=== PATIENT | male | born 2000 | race Hispanic/Latino ===

== ENCOUNTER 2021-06-10 13:32 | Emergency (ER) | payer OTHER ==
[2021-06-10] MEDS ORDERED: CLINDAMYCIN 600MG/D5W 600 MG/50 ML BAG IV ONE (14:49)
--- NOTE | 2021-06-10 16:23 | ER ---
Nurse's Notes [facility] Name: Srini Marlow Jr Age: 20 yrs Sex: Male : 2000 Arrival Date: 06/10/2021 Time: 13:35 Bed Treatment Private MD: Diagnosis: Dental Abscess Presentation: 06/10 13:42 Chief complaint: Patient states: pt presented to ed reporting left sided lower mouth [place] abcess. Coronavirus screen: Vaccine status: Patient reports being unvaccinated. Ebola Screen: Patient denies travel to an Ebola-affected area in the 21 days before illness onset. Initial Sepsis Screen: Does the patient meet any 2 criteria? HR > 90 bpm. Yes. Initial Sepsis Screen: Does the patient meet any 2 criteria? No. Patient's initial sepsis screen is negative. Does the patient have a suspected source of infection? No. Patient's initial sepsis screen is negative. Risk Assessment: Do you want to hurt yourself or someone else? Patient reports no desire to harm self or others. Onset of symptoms was June 09, 2021. 13:42 Method Of Arrival: Ambulatory [place] 13:42 Acuity: CLAIRE 4 [place] Historical: - Allergies: 14:08 No Known Allergies; ld1 - Home Meds: 14:08 None [Active]; ld1 - PMHx: 14:08 None; ld1 - PSHx: 14:08 None; ld1 - Immunization history:: Adult Immunizations up to date, Client reports receiving the 2nd dose of the Covid vaccine. - Social history:: Smoking status: Patient denies any tobacco usage or history of. Patient/guardian denies using alcohol. Screenin:08 Abuse screen: Denies threats or abuse. Denies injuries from another. Nutritional ld1 screening: No deficits noted. Tuberculosis screening: No symptoms or risk factors identified. Fall Risk None identified. Assessment: 14:07 General: Appears in no apparent distress. comfortable, Behavior is calm, cooperative, ld1 appropriate for age. Pain: Complains of pain in left buccal mucosa Pain does not radiate. Pain currently is 6 out of 10 on a pain scale. Quality of pain is described as throbbing, Pain began gradually. Neuro: Level of Consciousness is awake, alert, obeys commands, Oriented to person, place, time, situation. Cardiovascular: Capillary refill < 3 seconds Patient's skin is warm and dry. Respiratory: Airway is patent Respiratory effort is even, unlabored, Respiratory pattern is regular, symmetrical. GI: Abdomen is non-distended. : No signs and/or symptoms were reported regarding the genitourinary system. EENT: No signs and/or symptoms were reported regarding the EENT system. Derm: Abscess located on left buccal mucosa. Musculoskeletal: No signs and/or symptoms reported regarding the musculoskeletal system. Vital Signs: 13:42 BP 166 / 98; Pulse 104; Resp 18; Temp 98.7(T); Pulse Ox 100% on R/A; Weight 96.62 kg; [place] Height 5 ft. 6 in. (167.64 cm); 14:08 BP 159 / 91; Pulse 99; Resp 18; Pulse Ox 100% on R/A; ld1 13:42 Body Mass Index 34.38 (96.62 kg, 167.64 cm) ED Course: 13:35 Patient arrived in ED. as 13:42 Arm band placed on. [place] 13:44 Triage completed. 13:59 Oniel Carballo PA is PHCP. [facility] 13:59 Boogie Cee MD is Attending Physician. [facility] 14:08 Patient has correct armband on for positive identification. Placed in gown. Bed in low ld1 position. Call light in reach. Side rails up X2. Pulse ox on. NIBP on. Door closed. Noise minimized. Warm blanket given. 14:12 Julita Aiken, RN is Primary Nurse. ld1 15:08 Inserted saline lock: 20 gauge in left antecubital area, using aseptic technique. ld1 16:23 Petar Hoyos DDS is Referral Physician. [facility] 16:31 No provider procedures requiring assistance completed. IV discontinued, intact, ld1 bleeding controlled, No redness/swelling at site. Administered Medications: 15:08 Drug: Clindamycin 900 mg Route: IVPB; Infused Over: 30 mins; Site: left antecubital; ld1 Outcome: 16:23 Discharge ordered by . [facility] 16:31 Discharged to home ambulatory. ld1 16:31 Condition: stable 16:31 Discharge instructions given to patient, Instructed on discharge instructions, follow up and referral plans. medication usage, Demonstrated understanding of instructions, follow-up care, medications, Prescriptions given X 2. 16:31 Patient left the ED. ld1 Signatures: Oniel Carballo PA PA jmm Martinez, Amelia as Dibbern, Lauren, RN RN 1 Yasmin Trinidad RN RN [place] Corrections: (The following items were deleted from the chart) 14:08 Allergies: No Known Allergies; ld1 ld1 14:08 Home Meds: None; ld1 ld1 14:08 PMHx: None; ld1 ld1 14:08 PSHx: Unable to Obtain; ld1 ld1
--- NOTE | 2021-06-10 16:23 | EDPHYS ---
Physician Documentation [facility] Name: Srini Marlow Jr Age: 20 yrs Sex: Male : 2000 Arrival Date: 06/10/2021 Time: 13:35 Bed Treatment Private MD: ED Physician Boogie Cee HPI: 06/10 14:33 This 20 yrs old Male presents to ER via Ambulatory with complaints of Mouth jmm Swelling, Abscess. 14:33 The patient presents with pain, redness. Onset: The symptoms/episode began/occurred jmm this morning. Duration: The symptoms are continuous. Modifying factors: The symptoms are alleviated by nothing, the symptoms are aggravated by nothing. Associated signs and symptoms: Pertinent positives: pain, redness in area, swelling. This is a 20 year old male with no chronic medical conditions that presents to the ED with complaints of left lower jaw pain beginning this morning. Denies fever, sob, difficulty. . Historical: - Allergies: 14:08 No Known Allergies; ld1 - Home Meds: 14:08 None [Active]; ld1 - PMHx: 14:08 None; ld1 - PSHx: 14:08 None; ld1 - Immunization history:: Adult Immunizations up to date, Client reports receiving the 2nd dose of the Covid vaccine. - Social history:: Smoking status: Patient denies any tobacco usage or history of. Patient/guardian denies using alcohol. ROS: 14:33 Constitutional: Negative for fever, chills, and weight loss, Cardiovascular: Negative jmm for chest pain, palpitations, and edema, Respiratory: Negative for shortness of breath, cough, wheezing, and pleuritic chest pain. 14:33 ENT: Positive for dental pain. 14:33 All other systems are negative. Exam: 14:33 Constitutional: This is a well developed, well nourished patient who is awake, alert, jmm and in no acute distress. Head/Face: atraumatic. Eyes: EOMI, no conjunctival erythema appreciated 14:33 Chest/axilla: Normal chest wall appearance and motion. Cardiovascular: Regular rate and rhythm. No edema appreciated Respiratory: Normal respirations, no respiratory distress appreciated Abdomen/GI: Non distended, soft Back: Normal ROM Skin: General appearance color normal MS/ Extremity: Moves all extremities, no obvious deformities appreciated, no edema noted to the lower extremities Neuro: Awake and alert, normal gait Psych: Behavior is normal, Mood is normal, Patient is cooperative and pleasant 14:33 ENT: Posterior pharynx: Airway: normal, Uvula: midline, swelling noted to the left lower jaw, no submandibular tenderness. Vital Signs: 13:42 BP 166 / 98; Pulse 104; Resp 18; Temp 98.7(T); Pulse Ox 100% on R/A; Weight 96.62 kg; [place] Height 5 ft. 6 in. (167.64 cm); 14:08 BP 159 / 91; Pulse 99; Resp 18; Pulse Ox 100% on R/A; ld1 13:42 Body Mass Index 34.38 (96.62 kg, 167.64 cm) [place] MDM: 14:33 Patient medically screened. [facility] 16:22 Data reviewed: vital signs, nurses notes. Counseling: I had a detailed discussion with guillermo the patient and/or guardian regarding: the historical points, exam findings, and any diagnostic results supporting the discharge/admit diagnosis, lab results, radiology results, the need for outpatient follow up, to return to the emergency department if symptoms worsen or persist or if there are any questions or concerns that arise at home. ED course: Patient is alert and nontoxic in appearance NAD. No signs of blood legs. Patient advised follow-up with ENT or oral surgeon otherwise given strict return precautions. Patient understood agrees to plan of care.. 06/10 14:34 Order name: Saline Lock; Complete Time: 15:08 [facility] Administered Medications: 15:08 Drug: Clindamycin 900 mg Route: IVPB; Infused Over: 30 mins; Site: left antecubital; ld1 Disposition Summary: 06/10/21 16:23 Discharge Ordered Location: Home [facility] Condition: Stable [facility] Diagnosis - Dental Abscess [facility] Followup: [facility] - With: Petar Hoyos DDS - When: 1 - 2 days - Reason: Recheck today's complaints, Continuance of care, Re-evaluation by your physician Discharge Instructions: - Discharge Summary Sheet [facility] - Dental Abscess [facility] Forms: - Medication Reconciliation Form [facility] - Thank You Letter [facility] - Antibiotic Education [facility] - Prescription Opioid Use [facility] Prescriptions: - Peridex 0.12 % Mucous Membrane mouthwash - place 15 milliliter by MUCOUS MEMBRANE route 2 times per day after brushing [facility] teeth, swish in mouth for 30 seconds then spit out; 1 bottle; Refills: 0, Product Selection Permitted - Clindamycin HCl 300 mg Oral Capsule - take 1 capsule by ORAL route every 6 hours for 10 days; 40 capsule; Refills: 0, [facility] Product Selection Permitted Addendum: 06/12/2021 19:01 Co-signature as Attending Physician, Boogie Cee MD. r n Signatures: Oniel Carballo PA PA [facility] Boogie Cee MD MD rn Dibbern, Lauren, RN RN ld1 Corrections: (The following items were deleted from the chart) 06/10 14:09 14:08 Allergies: No Known Allergies; ld1 ld1 14:08 Home Meds: None; 1 ld1 14:08 PMHx: None; ld1 ld1 14:08 PSHx: Unable to Obtain; 1 ld1
[2021-06-10 21:25] VITALS: TEMP 98.7; O2SAT 100
[2021-06-10 21:26] VITALS: BP 159/91
== END 2021-06-10 16:31 | disposition home or self-care (01) ==
LOC: ER 13:32
DX: K04.7 Periapical abscess without sinus (principal)
CPT/HCPCS: 96374; 99284

== ENCOUNTER 2021-06-10 20:55 | Inpatient (IN) | payer OTHER ==
[2021-06-10] MEDS ORDERED: CLINDAMYCIN 900MG/D5W 900 MG/50 ML IVPB IV ONE (21:41)
[2021-06-10] MEDS ORDERED: NA CHLORIDE 0.9% 1,000 ML ONE (21:41)
[2021-06-10 21:50] LABS: Absolute Lymphocytes (CBC) 1.1 K/uL (0.7-4.9); Hematocrit 48.4 % (39.6-49.0); Lymphocytes % 4.9 % (15.3-44.8); RBC Red Blood Cell Count 6.15 M/uL (4.33-5.43)
[2021-06-10 22:03] LABS: BUN Blood Urea Nitrogen 12 mg/dL (7-18); Bicarbonate 26 mmol/L (21-32); Glucose Level 105 mg/dL (74-106); Potassium 3.4 mmol/L (3.5-5.1); Sodium Level 135 mmol/L (136-145)
[2021-06-10] MEDS ORDERED: POTASSIUM 25 MEQ EFFERV TAB ONE (22:39)
[2021-06-10 23:09] LABS: Blood Morphology Comment NOT SEEN (NOT SEEN); Platelet Estimate ADEQ
[2021-06-10] MEDS ORDERED: dexAMETHasone 10 MG/ML VIAL ONE (23:41)
--- NOTE | 2021-06-10 23:47 | ER ---
Nurse's Notes [facility] Name: Srini Marlow Jr Age: 20 yrs Sex: Male : 2000 Arrival Date: 06/10/2021 Time: 20:57 Bed 23 Private MD: Diagnosis: Cellulitis / Abscess left side face and jaw. Dental disease involving multiple teeth Presentation: 06/10 21:05 Chief complaint: Patient states: I was here this morning, received medicine and it is ld1 getting worse. Pt has abscess to lower left jaw/cheek. Coronavirus screen: At this time, the client does not indicate any symptoms associated with coronavirus-19. Ebola Screen: No symptoms or risks identified at this time. Initial Sepsis Screen: Does the patient meet any 2 criteria? No. Patient's initial sepsis screen is negative. Does the patient have a suspected source of infection? No. Patient's initial sepsis screen is negative. Risk Assessment: Do you want to hurt yourself or someone else? Patient reports no desire to harm self or others. Onset of symptoms was June 10, 2021. 21:05 Method Of Arrival: Ambulatory ld1 21:05 Method Of Arrival: Ambulatory ld1 21:05 Acuity: CLAIRE 4 ld1 Triage Assessment: 21:06 General: Appears in no apparent distress. comfortable, Behavior is calm, cooperative, ld1 appropriate for age. Pain: Complains of pain in mouth Pain does not radiate. Pain currently is 9 out of 10 on a pain scale. EENT: No signs and/or symptoms were reported regarding the EENT system. Neuro: Level of Consciousness is awake, alert, obeys commands, Oriented to person, place, time, situation. Respiratory: Airway is patent Respiratory effort is even, unlabored, Respiratory pattern is regular, symmetrical. Historical: - Allergies: 21:06 No Known Allergies; ld1 - Home Meds: 21:06 None [Active]; ld1 - PMHx: 21:06 None; ld1 - PSHx: 21:06 None; ld1 - Immunization history:: Adult Immunizations up to date, Client reports having NOT received the Covid vaccine. - Social history:: Smoking status: Patient denies any tobacco usage or history of. Patient/guardian denies using alcohol. Screenin:44 Abuse screen: Denies threats or abuse. Nutritional screening: No deficits noted. sf1 Tuberculosis screening: No symptoms or risk factors identified. Fall Risk None identified. Assessment: 21:44 General: Appears uncomfortable, obese, Behavior is calm, cooperative, appropriate for 1 age. Pain: Complains of pain in mouth, chin and left jaw. Derm: Abscess located on mouth, chin and left jaw. 06/11 06:38 Reassessment: Dr. Hankins at bedside. lp1 Vital Signs: 06/10 21:05 BP 139 / 88; Pulse 76; Resp 18; Temp 98.7(TE); Pulse Ox 100% on R/A; Weight 96.62 kg; ld1 Height 5 ft. 6 in. (167.64 cm); Pain 9/10; 06/11 00:53 BP 128 / 64; Pulse 85; Resp 16; Temp 99.2; Pulse Ox 99% on R/A; Pain 4/10; sf1 04:49 BP 138 / 76; Pulse 75; Resp 20; Pulse Ox 99% ; Pain 2/10; sf1 05:49 Temp 98.7; sf1 06/10 21:05 Body Mass Index 34.38 (96.62 kg, 167.64 cm) ld1 ED Course: 06/10 20:57 Patient arrived in ED. es 21:06 Triage completed. ld1 21:06 Arm band placed on right wrist. ld1 21:07 Eusebio Tavares MD is Attending Physician. pkl 21:34 Chelsey Garrison RN is Primary Nurse. sf1 21:35 Lactate Sent. sf1 21:35 Chem 7 Sent. sf1 21:35 Blood Culture Adult (2) Sent. sf1 21:35 CBC with Diff Sent. sf1 21:44 Patient has correct armband on for positive identification. sf1 21:44 Inserted saline lock: 18 gauge in right antecubital area, using aseptic technique. sf1 22:44 CT Facial Bones W/ Con \\T\\ Mpr In Process Unspecified. EDMS 22:45 CT Soft Tissue Neck W/contr In Process Unspecified. EDMS 22:45 COVID-19/FLU A+B (Document "Date of Onset" if Symptomatic): pain and swelling left jaw sf1 Sent. 22:45 Manual Differential Sent. sf1 23:42 Leila Hankins MD is Hospitalizing Provider. pkl Administered Medications: 21:43 Drug: Clindamycin 900 mg Route: IVPB; Infused Over: 30 mins; Site: right antecubital; sf1 22:28 Drug: NS 0.9% 1000 ml Route: IV; Rate: 1000 ml; Site: right antecubital; sf1 22:44 Drug: K-Lyte (potassium) Effervescent Tablet 25 mEq Route: PO; sf1 23:44 Drug: Decadron - Dexamethasone 10 mg Route: IVP; Site: right antecubital; sf1 Outcome: 23:46 Decision to Hospitalize by Provider. pkl 06/11 20:44 Admitted to Report called to [place] medicating a patient. Will call back for report. tk1 22:13 Admitted to accompanied by nurse, via wheelchair, with chart. tk1 22:13 Admitted to Report called to [place] called ED for report. Given. Questions tk1 answered. 22:13 Condition: stable 22:29 Patient left the ED. tk1 Signatures: Dispatcher [employer] Eusebio Davis MD MD pkl Janice Grier Laura RN RN lp1 Julita Aiken RN RN ld1 Cathie Moss tk1 Chelsey Garrison RN RN sf1
--- NOTE | 2021-06-10 23:48 | EDPHYS ---
Physician Documentation [facility] Name: Srini Marlow Jr Age: 20 yrs Sex: Male : 2000 Arrival Date: 06/10/2021 Time: 20:57 Bed 23 Private MD: ED Physician Eusebio Tavares HPI: 06/10 21:31 This 20 yrs old Male presents to ER via Ambulatory with complaints of Abscess. pkl 21:31 The patient presents with an abscess of the left side face side jaw. Onset: The pkl symptoms/episode began/occurred last night. The patient has been recently seen at the [facility] Emergency Department, for similar complaints given IM/IV antibiotics, was given a prescription for antibiotics, earlier this morning. Patient said pain and swelling left jaw, left face and left lower lip getting getting worse tonight worse tonight. Historical: - Allergies: 21:06 No Known Allergies; ld1 - Home Meds: 21:06 None [Active]; ld1 - PMHx: 21:06 None; ld1 - PSHx: 21:06 None; ld1 - Immunization history:: Adult Immunizations up to date, Client reports having NOT received the Covid vaccine. - Social history:: Smoking status: Patient denies any tobacco usage or history of. Patient/guardian denies using alcohol. ROS: 21:31 Eyes: Negative for injury, pain, redness, and discharge. pkl 21:31 ENT: Positive for pain and swelling left jaw. 21:31 Neck: Positive for swelling, of the left side neck. 21:31 Cardiovascular: Negative for chest pain. 21:31 Respiratory: Negative for cough, shortness of breath. 21:31 Abdomen/GI: Negative for abdominal pain, nausea, vomiting, and diarrhea. 21:31 Back: Negative for acute changes. 21:31 : Negative for urinary symptoms. 21:31 MS/extremity: Negative for acute changes. 21:31 Skin: Negative for rash. 21:31 Neuro: Negative for altered mental status, loss of consciousness. Exam: 21:31 Eyes: Pupils equal round and reactive to light, extra-ocular motions intact. Lids and pkl lashes normal. Conjunctiva and sclera are non-icteric and not injected. Cornea within normal limits. Periorbital areas with no swelling, redness, or edema. 21:31 Head/face: Noted is swelling, that is moderate, of the left jaw and face. 21:31 Neck: External neck: swelling, that is mild, of the left side neck. 21:31 Chest/axilla: Exam negative for acute changes. 21:31 Cardiovascular: Rate: normal, Rhythm: regular. 21:31 Respiratory: the patient does not display signs of respiratory distress, Respirations: normal, Breath sounds: are clear throughout. 21:31 Abdomen/GI: Exam negative for acute changes. 21:31 Back: Exam negative for acute changes. 21:31 : Exam negative for acute changes. 21:31 Musculoskeletal/extremity: Exam is negative for acute changes. 21:31 Skin: Exam negative for rash. 21:31 Neuro: Orientation: is normal, Mentation: is normal, Cranial nerves: grossly normal, Motor: is normal. Vital Signs: 21:05 BP 139 / 88; Pulse 76; Resp 18; Temp 98.7(TE); Pulse Ox 100% on R/A; Weight 96.62 kg; ld1 Height 5 ft. 6 in. (167.64 cm); Pain 9/10; 06/11 00:53 BP 128 / 64; Pulse 85; Resp 16; Temp 99.2; Pulse Ox 99% on R/A; Pain 4/10; sf1 04:49 BP 138 / 76; Pulse 75; Resp 20; Pulse Ox 99% ; Pain 2/10; sf1 05:49 Temp 98.7; sf1 06/10 21:05 Body Mass Index 34.38 (96.62 kg, 167.64 cm) ld1 MDM: 06/10 21:07 Patient medically screened. pkl 23:40 Data reviewed: vital signs, nurses notes, lab test result(s), radiologic studies, CT pkl scan. 23:41 ED course: Talked to Dr. Hankins, will admit. pkl 06/10 21:19 Order name: CBC with Diff; Complete Time: 23:14 pkl 06/10 21:19 Order name: Chem 7; Complete Time: 22:04 pkl 06/10 21:19 Order name: Blood Culture Adult (2) pkl 06/10 21:19 Order name: Lactate; Complete Time: 22:09 pkl 06/10 21:43 Order name: COVID-19/FLU A+B (Document "Date of Onset" if Symptomatic): pain and pkl swelling left jaw; Complete Time: 05:37 06/10 22:01 Order name: Manual Differential; Complete Time: 23:14 EDMS 06/10 21:22 Order name: CT Facial Bones W/ Con \\T\\ Mpr pkl 06/10 21:29 Order name: CT Soft Tissue Neck W/contr pkl 06/11 00:29 Order name: Basic Metabolic Panel EDMS 06/11 00:29 Order name: Basic Metabolic Panel EDMS 06/11 00:29 Order name: CBC with Automated Diff EDMS 06/11 00:29 Order name: CBC with Automated Diff EDMS 06/11 00:32 Order name: CBC with Automated Diff; Complete Time: 05:37 EDMS 06/11 00:32 Order name: Basic Metabolic Panel; Complete Time: 05:37 EDMS 06/11 00:31 Order name: NPO EDMS Administered Medications: 21:43 Drug: Clindamycin 900 mg Route: IVPB; Infused Over: 30 mins; Site: right antecubital; sf1 22:28 Drug: NS 0.9% 1000 ml Route: IV; Rate: 1000 ml; Site: right antecubital; sf1 22:44 Drug: K-Lyte (potassium) Effervescent Tablet 25 mEq Route: PO; sf1 23:44 Drug: Decadron - Dexamethasone 10 mg Route: IVP; Site: right antecubital; sf1 Disposition Summary: 06/10/21 23:46 Hospitalization Ordered Hospitalization Status: Inpatient Admission pkl Provider: Leila Hankins pkl Condition: Stable pkl Problem: new pkl Symptoms: are unchanged pkl Bed/Room Type: Standard pkl Location: Telemetry/MedSurg (Inpatient)(06/11/21 19:54) Room Assignment: [facility](06/11/21 19:54) Diagnosis - Cellulitis / Abscess left side face and jaw. Dental disease involving pkl multiple teeth Forms: - Medication Reconciliation Form pkl - SBAR form pkl Signatures: Dispatcher [employer] EDEusebio Martinez MD MD pkl Karolyn Toth RN RN Julita Forbes RN RN ld1 Chelsey Garrison RN RN sf1 Corrections: (The following items were deleted from the chart) 06/11 01:06/10 23:46 Telemetry/MedSurg (Inpatient) pkl cg 06/11 01:20 06/10 23:46 pkl cg 06/11 19:54 01:20 [facility] ER HOLD cg cg :54 01:20 ERHOLD- cg cg
[2021-06-11] MEDS ORDERED: MORPHINE 4 MG/ML SYR IV PRN (00:21)
[2021-06-11] MEDS ORDERED: ONDANSETRON 4 MG/2 ML VIAL IV PRN (00:21)
[2021-06-11 00:54] LABS: SARS-COV-2 RT PCR POSITIVE (NEGATIVE)
[2021-06-11 04:25] LABS: Hematocrit 45.2 % (39.6-49.0); MPV 8.7 fL (7.6-11.3); RBC Red Blood Cell Count 5.78 M/uL (4.33-5.43)
[2021-06-11 04:44] LABS: Potassium 4.1 mmol/L (3.5-5.1)
[2021-06-11] MEDS ORDERED: dexAMETHasone 4 MG/ML VIAL ONE ×3 (05:34→18:25)
[2021-06-11] MEDS ORDERED: CLINDAMYCIN 900MG/D5W 900 MG/50 ML IVPB IV ONE (05:34)
[2021-06-11] MEDS: dexAMETHasone 4 MG/ML VIAL IV SCH ×3 (05:41→18:00)
[2021-06-11] MEDS ORDERED: dexAMETHasone 10 MG/ML VIAL IV SCH (06:00)
[2021-06-11] MEDS ORDERED: CLINDAMYCIN INJ 900 MG in NA CHLORIDE 0.9% 50 ML IV SCH (06:00)
--- NOTE | 2021-06-11 07:51 | CON ---
This is a consult/admission history and physical. Reason For Consultation: Facial cellulitis and abscess with dental disease. History Of Present Illness: The patient presented to the emergency room on June 10 with concern for facial swelling. He was treated with a dose of IV antibiotics and discharged to home. He subsequently presented approximately 12 hours later with worsening swelling of the left face and increased pain. He was evaluated by the emergency room including laboratory studies and a contrasted CT scan. The patient denied any tooth pain. Past Medical History: None. Past Surgical History: None. Allergies: NO KNOWN DRUG ALLERGY. Review of Systems: Reviewed as documented by Dr. Tavares in the emergency room on June 10 and is unchanged. Physical Examination: Upon my arrival, the patient is resting comfortably with no significant snoring or stertorous breathing. He is easily arousable, but fatigued and limited history is collected. Upon exam, he has significant swelling of the lower lip, which is more prominent on the left side. He has swelling and tenderness of the left lower cheek and left upper neck. On intraoral exam, tooth #30 and 31 appear grossly carious and there is moderate edema of the lower left buccal mucosa with swelling of the buccal gingiva. With gentle manual pressure within the inferior gingival buccal sulcus, copious amounts of foul smelling pus are expressed and appeared to be coming out along the gumline. The pus is expressed to the degree tolerated by the patient. The floor of mouth appears soft and uninvolved with the swelling. Laboratory Data: Data reviewed. The laboratory studies demonstrate mildly elevated glucose, but not grossly suggestive of diabetes. His white count is elevated, but other components of his CBC are within normal limits. The protocol testing for influenza and COVID was completed due to the plan for admission. His COVID test was positive. CT of the face with contrast was personally reviewed by me and is consistent with periapical abscess along tooth #18 versus 19 on the right and periapical abscess with bone erosion to the buccal cortex around tooth #30 and 31. There is phlegmon versus abscess along the left mandible consistent with exam findings. The scan also showed significant soft tissue stranding consistent with acute inflammatory process. Assessment: 1. Facial cellulitis and abscess secondary to dental caries and periapical abscess. Plan for this diagnosis includes admission for IV antibiotics, steroids, pain control, will plan to contact Oral surgeon, Dr. Kearney, during regular business hours. We will keep the patient n.p.o. for now. Given the visualized spontaneous drainage of the abscess upon exam today, I will not plan for acute surgical intervention, but we will defer decision making to the Oral Surgery team. If no acute surgical plan is expected for today, we will start the patient on diet as tolerated, Peridex, and continue IV antibiotics until the infection is more controlled to allow for outpatient management of the dental caries. 2. SARS-CoV-2, asymptomatic. Confirmed by testing with no known prior symptomatic illness or prior positive COVID test. We will maintain airborne precautions. SH/MODL Voice ID: [id number] Report ID: [id number] I spoke with Dr Hardy's office regarding the patient and will plan to continue IV Clindamycin with outpatient evaluation for dental extractions. Will start PO diet and peridex and continue to monitor with d/c plan pending based on clinical progress. I anticipate the patient will continue IV for at least 48 hours due to the severity of the infection. LACIE
[2021-06-11] MEDS ORDERED: HYDROCODONE/APAP 5/325 MG TAB PO PRN (08:16)
[2021-06-11] MEDS: CHLORHEXIDINE 0.12% 473ML BOT MM SCH ×2 (09:00→18:21)
[2021-06-11] MEDS: CLINDAMYCIN INJ 900 MG in NA CHLORIDE 0.9% 50 ML IV SCH ×2 (12:00→18:00)
--- NOTE | 2021-06-11 13:43 | RAD REPORT ---
EXAM DESCRIPTION: CT - Facial Bones W Con Mpr - 06/11/2021 3:08 am CLINICAL HISTORY: 20 years,Male,abscess left side face COMPARISON: None. TECHNIQUE: Contiguous axial images were obtained through the maxillofacial region following IV contr ast. Reformatted images obtained. This exam was performed according to our department optimization program which includes automated exp osure control, adjustment of the mA and/or kv according to patient size and/or use of iterative recon struction technique. FINDINGS: There is dental disease involving multiple teeth. There is marked soft tissue swelling in the left face consistent with cellulitis with phlegmonous tis raissa adjacent to the body of the mandible on the left. There is a fluid collection adjacent to the max illary molar teeth on the left measuring approximately 2.1 cm AP by 1.2 cm transverse by 1.8 cm in he ight suggesting changes from an abscess. There is also a fluid collection adjacent to the body of the mandible on the left measuring approximately 1.9 cm AP by 0.5 cm transverse by 1 cm in height sugges ting an abscess. The pharynx and larynx appear patent. No fluid or significant mucosal thickening in the paranasal sinuses or mastoid air cells. IMPRESSION: There is dental disease involving multiple teeth. There is marked soft tissue swelling in the left face consistent with cellulitis with phlegmonous tis raissa adjacent to the body of the mandible on the left. There is a fluid collection adjacent to the max illary molar teeth on the left suggesting changes from an abscess. There is also a fluid collection a djacent to the body of the mandible on the left suggesting an abscess. Electronically signed by: Omar Snider MD 06/10/2021 11:23 PM FAMILY PSYCHOLOGIST Due to temporary technical issues with the PACS/Fluency reporting system, reports are being signed by the in house radiologist without review as a courtesy to ensure prompt reporting. The interpreting r adiologist is fully responsible for the content of the report.
--- NOTE | 2021-06-11 13:59 | RAD REPORT ---
EXAM DESCRIPTION: CT - Soft Tissue Neck W/Contr - 06/11/2021 3:09 am CLINICAL HISTORY: 20 years Male abscess left jaw COMPARISON: None. TECHNIQUE: Contiguous axial images obtained through the neck following IV contrast. Reformatted imag es obtained. This exam was performed according to our department optimization program which includes automated exp osure control, adjustment of the mA and/or kv according to patient size and/or use of iterative recon struction technique. FINDINGS: There is dental disease involving multiple teeth. There is marked soft tissue swelling in the left face consistent with cellulitis with phlegmonous tis raissa adjacent to the body of the mandible on the left. There is a fluid collection adjacent to the max illary molar teeth on the left measuring approximately 2.1 cm AP by 1.2 cm transverse by 1.8 cm in he ight suggesting changes from an abscess. There is also a fluid collection adjacent to the body of the mandible on the left measuring approximately 1.9 cm AP by 0.5 cm transverse by 1 cm in height sugges ting an abscess. The visualized intracranial structures and post septal orbits appear grossly unremarkable. The parotid glands, submandibular glands and thyroid gland appear unremarkable. The lung apices are clear. The pharynx and larynx appear unremarkable. Scattered lymph nodes in the neck greater on the left likely reactive. No fluid or significant mucosal thickening in the visualized paranasal sinuses. IMPRESSION: There is dental disease involving multiple teeth. There is marked soft tissue swelling in the left face consistent with cellulitis with phlegmonous tis raissa adjacent to the body of the mandible on the left. There is a fluid collection adjacent to the max illary molar teeth on the left suggesting changes from an abscess. There is also a fluid collection a djacent to the body of the mandible on the left suggesting an abscess. Scattered lymph nodes in the neck greater on the left likely reactive. Electronically signed by: Omar Snider MD 06/10/2021 11:28 PM TECHNICAL SERVICES ANALYST Due to temporary technical issues with the PACS/Fluency reporting system, reports are being signed by the in house radiologist without review as a courtesy to ensure prompt reporting. The interpreting r adiologist is fully responsible for the content of the report.
[2021-06-11 23:00] VITALS: BMI 34.3
[2021-06-12] MEDS: dexAMETHasone 4 MG/ML VIAL IV SCH ×2 (00:26→06:00)
[2021-06-12] MEDS ORDERED: CLINDAMYCIN IV 150 MG/ML (6 mL) VIAL ONE (03:45)
[2021-06-12 03:51] LABS: Absolute Lymphocytes (CBC) 1.1 K/uL (0.7-4.9); Hematocrit 45.1 % (39.6-49.0); Lymphocytes % 4.7 % (15.3-44.8); MPV 8.9 fL (7.6-11.3); RBC Red Blood Cell Count 5.68 M/uL (4.33-5.43)
[2021-06-12] MEDS ORDERED: NA CHLORIDE 0.9% 100 ML ONE (04:05)
[2021-06-12 04:10] LABS: BUN Blood Urea Nitrogen 17 mg/dL (7-18); Bicarbonate 25 mmol/L (21-32); Glucose Level 141 mg/dL (74-106); Potassium 4.2 mmol/L (3.5-5.1); Sodium Level 137 mmol/L (136-145)
[2021-06-12 05:18] LABS: Blood Morphology Comment NOT SEEN (NOT SEEN); Platelet Estimate ADEQ
[2021-06-12] MEDS: CLINDAMYCIN INJ 900 MG in NA CHLORIDE 0.9% 50 ML IV SCH ×5 (06:00→18:14)
[2021-06-12] MEDS: CHLORHEXIDINE 0.12% 473ML BOT MM SCH (09:01)
[2021-06-12 16:24] VITALS: BP 127/56; TEMP 97.8
[2021-06-12 16:26] VITALS: O2SAT 98
--- NOTE | 2021-06-12 18:55 | P.DS ---
Admission Date: 06/11/21 Discharge Date: 06/12/21 Primary Care Provider: None Disposition: ROUTINE DISCHARGE Discharge Condition: GOOD Reason for Admission: Dental and neck abscess Consultations: None Brief History of Present Illness: The patient presented Friday evening with neck swelling and pain. He was evaluated by the emergency room who identified a dental related abscess asso ciated with tooth #[address] scan also showed periapical lucency of tooth #18 versus 19. He was admitted to Dr. Hankins and placed on IV clindamycin and IV dexamethasone with Peridex oral rinses twice daily. As part of his admission, the patient underwent routine Covid screening including nasopharyngeal testing which was positive. The patient was free from fever, headache, cough, and acute nasal symptoms or any other specific symptoms associated with Covid infection. Hospital Course: The patient was examined twice with manual pressure to the left jaw and left lower gingival buccal sulcus with expression of gross purulence which decreased over the course of his hospital stay. On the evening of discharge, the patient had no pain and was comfortable with the plan to transition to outpatient oral antibiotics and seek semiurgent care from the oral surgeon in regards to definitive treatment for his infection with dental origin. Discharge medications: clindamycin and Peridex. Patient is instructed to use Tylenol and ibuprofen [id number] as needed for pain. If he has increasing pain, increasing swelling he should contact Dr. Hankins's office soon as possible. Care coordination: I spoke with Dr. Hardy's office in regards to the patient's condition, findings, and Covid positive status. They are agreeable to evaluate and treat the patient in accordance with their office policies. Follow-up: The patient can follow-up with Dr. Hankins's office on an as-needed basis Vital Signs/Physical Exam: Temp Pulse Resp BP Pulse Ox 97.8 F 68 14 127/56 L 98 06/12/21 16:00 06/12/21 16:00 06/12/21 16:00 06/12/21 16:00 06/12/21 16:00 Laboratory Data at Discharge: WBC 23.80 K/uL (4.3-10.9) H* D 06/12/21 03:28 Hgb 15.0 g/dL (13.6-17.9) 06/12/21 03:28 Hct 45.1 % (39.6-49.0) 06/12/21 03:28 Plt Count 239 K/uL (152-406) D 06/12/21 03:28 Sodium 137 mmol/L (136-145) 06/12/21 03:28 Potassium 4.2 mmol/L (3.5-5.1) 06/12/21 03:28 BUN 17 mg/dL (7-18) 06/12/21 03:28 Creatinine 0.92 mg/dL (0.55-1.3) 06/12/21 03:28 Glucose 141 mg/dL (74-106) H 06/12/21 03:28 Home Medications: Chlorhexidine 0.12% [Periogard*] 15 ml MM BID #1 btl 06/12/21 clindamycin HCL [Clindamycin HCl] 300 mg PO TID 14 Days #42 capsule 06/12/21 New Medications: clindamycin HCL [Clindamycin HCl] 300 mg PO TID 14 Days #42 capsule Chlorhexidine 0.12% [Periogard*] 15 ml MM BID #1 btl Diet: Regular Activity: Ad mason Followup: NONE,NONE [Primary Care Provider] - (Call Dr Hardy's office in the morning to make arrangments for dental extractions. Call Dr Hankins's office if symptoms worse)
== END 2021-06-12 19:57 | disposition home or self-care (01) | DRG 602 ==
LOC: ER 20:55 → ERHOLD 06-11 00:30 → 4TH 06-11 22:05
PROVIDERS: ADMIT Otolaryngology; ATTEND Otolaryngology
DX: L03.211 Cellulitis of face (principal); U07.1 COVID-19; L02.01 Cutaneous abscess of face; K08.9 Disorder of teeth and supporting structures, unspecified; K02.9 Dental caries, unspecified; K04.7 Periapical abscess without sinus
CPT/HCPCS: 0240U; 36415; 70487; 70491; 76377; 80048; 83605; 85025; 87040; 96374; 96375; 99285; J1100; J7030; Q9967